=== PATIENT | male | born 1985 | race Caucasian/White ===

== ENCOUNTER → 2021-04-02 09:45 | Outpatient (CLI) | payer OTHER, SELFPAY ==
[2021-04-02 11:28] LABS: Add Manual Diff / Slide Review NO; Basophils Absolute Auto 100 /uL (0-100); Basophils Percent Auto 0.9 % (0-2); Eosinophils Absolute Auto 500 /uL (0-450); Eosinophils Percent Auto 6.1 % (2-4); Hemoglobin 14.6 g/dL (13.5-17.5); Lymphocytes Absolute Auto 1800 /uL (1100-4500); Lymphocytes Percent Auto 20.6 % (25-40); Mean Corpuscular HGB Conc 33.3 % (30-36); Mean Corpuscular Hemoglobin 27.6 PG (26-34); Mean Corpuscular Volume 83.1 fL (80-100); Monocytes Absolute Auto 600 /uL (0-900); Monocytes Percent Auto 7.3 % (3-14); Neutrophils Absolute Auto 5800 /uL (1500-7000); Neutrophils Percent Auto 65.1 % (50-75); Platelet Count 300 X10^3/uL (150-400); Red Blood Cell Count 5.29 X10^6/uL (4.5-5.9); Red Cell Distribution Width 13.2 % (11.6-14.8); White Blood Cell Count 8.9 X10^3/uL (4.5-11.0)
[2021-04-02 12:59] LABS: Alanine Aminotransferase 47 IU/L (<50); Albumin 4.8 g/dL (3.5-5.0); Albumin Globulin Ratio 1.6 (1.0-2.8); Alkaline Phosphatase 103 U/L (38-126); Aspartate Aminotransferase 47 IU/L (17-59); BUN Creatinine Ratio 17.4 (6-22); Bilirubin Total 0.5 mg/dL (0.2-1.3); Blood Urea Nitrogen 16 mg/dL (9-20); Calcium 9.7 mg/dL (8.4-10.2); Carbon Dioxide 24 mmol/L (22-32); Chloride 105 mmol/L (98-107); Cholesterol 262 mg/dL (140-199); Estimated Glomerular Filt Rate > 60.0 mL/min (>60); Glucose 98 mg/dL (70-100); HDL Cholesterol 44 mg/dL (40-60); HEMOLYSIS < 15 (0-50); Potassium 4.6 mmol/L (3.4-5.1); Sodium 139 mmol/L (137-145); Total Protein 7.8 g/dL (6.3-8.2)
[2021-04-02 13:20] LABS: Triglycerides 642 mg/dL (35-150)
[2021-04-02 14:46] LABS: LDL Cholesterol Direct 97 mg/dL (<100)
== END ==
PROVIDERS: Family Medicine; PCP Family Medicine; Referring Provider Family Medicine; Visit Provider Family Medicine
DX: Z13.9 Encounter for screening, unspecified (principal); E78.00 Pure hypercholesterolemia, unspecified
CPT/HCPCS: 36415; 80053; 80061; 83721; 85025

== ENCOUNTER → 2021-06-30 09:55 | Outpatient (CLI) | payer OTHER, SELFPAY ==
[2021-06-30 12:27] LABS: Cholesterol 249 mg/dL (140-199); HDL Cholesterol 38 mg/dL (40-60); LDL Cholesterol Calculated 145 mg/dL (<100); Triglycerides 332 mg/dL (35-150)
== END ==
PROVIDERS: PCP Family Medicine; Referring Provider Family Medicine; Visit Provider Family Medicine
DX: E78.1 Pure hyperglyceridemia (principal)
CPT/HCPCS: 36415; 80061

== ENCOUNTER 2022-05-13 19:55 | Emergency (ER) | payer OTHER, SELFPAY ==
[2022-05-13 20:15] VITALS: BP 163/80; PULSE 80; RESP 20; TEMP 36.7; O2SAT 99; BMI 29.6
[2022-05-13] MEDS: PROPARACAINE 0.5% OPHTH SOL 1 DROPS EYE-RIGHT (20:47)
[2022-05-13] MEDS: ERYTHROMYCIN OPHTH 1 GM OINT 1 APPLIC EYE-RIGHT (20:47)
--- NOTE | 2022-05-13 20:51 | ED.GENADULT ---
HPI - General Adult General Chief complaint: Eye Problems Stated complaint: Metal in eye Time Seen by Provider: 05/13/22 20:04 Source: patient Mode of arrival: Ambulatory History of Present Illness HPI narrative: Patient is a 37-year-old male here for evaluation what he states is a piece of metal in his right eye. He was working with metal while at work. He thinks that he got a piece in his eye. He can actually see it in his right eye. Has irritation. Has not tried to remove it on his own. Does not wear contact lenses. Related Data Previous Rx's Medication Instructions Recorded naproxen 500 mg tablet 500 mg PO BID #60 tabs 05/14/19 erythromycin 5 mg/gram (0.5 %) eye 0.5 inch EYE-RIGHT TID 5 days #3.5 05/13/22 ointment grams Allergies Allergy/AdvReac Type Severity Reaction Status Date / Time No Known Drug Allergies Allergy Verified 05/14/19 15:17 Review of Systems Eyes Eyes: Reports system reviewed and no additional complaints, except as documented ENT Ears, Nose, Mouth, and Throat: Reports system reviewed and no additional complaints, except as documented Integumentary/Breasts Skin/Breast: Reports system reviewed and no additional complaints, except as documented Patient History Medical History Hypertriglyceridemia Obesity (BMI 30.0-34.9) Toxic shock syndrome Family History Father Cancer Social History marital status: number of children: 2 household members: family lives independently: Yes occupational status: employed Smoking Status: Never smoker alcohol intake: current substance use type: does not use Smoking Status: Never smoker alcohol intake frequency: holidays/special occasions only Exam Initial Vital Signs Initial Vital Signs: Vital Signs Temperature 98.0 F 05/13/22 20:15 Pulse Rate 80 05/13/22 20:15 Respiratory Rate 20 05/13/22 20:15 Blood Pressure 163/80 H 05/13/22 20:15 Pulse Oximetry 99 05/13/22 20:15 Oxygen Delivery Method 05/13/22 20:15 Const General: cooperative, comfortable and well developed HENIN Head: normal to inspection and normocephalic Eyes Other: Patient with an obvious foreign body at the 7 o'clock position of the right eye. Outside the direct visual axis. Skin General: no rashes or lesions noted Neuro General: patient alert and patient awake Procedures Foreign Body EYE Location: eye (R) Topical anesthetic used: proparacaine Foreign body: metal Evidence of corneal penetration: No Technique: cotton tip swab, needle and electric charisse Procedure performed under: direct visualization with magnification and slit-lamp Post-procedure medication: ophthalmic antibiotic Patient tolerated procedure: well Complications: residual rust ring Course Orders Ordered: Discontinued Medications Erythromycin (Erythromycin Ophth 1 Gm Oint) 1 applic EYE-RIGHT NOW ONE Stop: 05/13/22 20:06 Last Admin: 05/13/22 20:47 Dose: 1 applic Documented By: BT Fluorescein Sodium (Fluorescein 1 Mg Strip) 1 mg EYE-BOTH NOW ONE Stop: 05/13/22 20:06 Last Admin: 05/13/22 20:52 Dose: Not Given Documented By: BT Proparacaine HCl (Proparacaine 0.5% Ophth Jackeline) 1 drops EYE-RIGHT NOW ONE Stop: 05/13/22 20:06 Last Admin: 05/13/22 20:47 Dose: 1 units Documented By: BT Vital Signs Vital signs: Vital Signs - 8 hr 05/13/22 20:15 Temperature 98.0 F Pulse Rate 80 Respiratory Rate 20 Blood Pressure 163/80 H Pulse Oximetry 99 Oxygen Delivery Method Room Air Medical Decision Making MDM Narrative Medical decision making narrative: Very easily identifiable metal foreign body to the right eye. The actual foreign body was removed by con tip applicator however there was a residual rust ring. This was attempted to be removed by needle but then a bur was used. I was able to remove most of it however there was a small amount of residual rust ring that I could not remove. Will place the patient on antibiotic ointment. He does have an appointment with a eye doctor that is scheduled for 1 month from now. Informed him that he should call that office on Monday to see if they could see him next week and if they could not that he should contact the senior software developer here at the hospital. He was given return precautions and follow-up instructions. He expressed understanding and agreement. Discharge Plan Departure Patient Disposition: Home Clinical Impression: Eye foreign body Instructions: DI for Foreign Body in the Eye Activity Restrictions/Additional Instructions: Some antibiotic ointment was placed here in the emergency department. I recommend that you put some more in your right eye before he got bed tonight and then in the morning when you wake up. A prescription for more this antibiotic ointment was sent to [facility] per your request. Use 3 times a day as directed. On Monday contact the eye doctor you have a scheduled appointment with like we discussed. If they can not see you you can contact the eye doctors here at the hospital. I do recommend you have a follow-up within the next week. Return to the emergency department for any new or worsening symptoms Prescriptions: New erythromycin 5 mg/gram (0.5 %) ointment 0.5 inch EYE-RIGHT TID 5 Days Qty: 3.5 1RF No Action naproxen 500 mg tablet 500 mg PO BID Qty: 60 0RF Rx Instructions: stop other nsaids, take with food Referrals: Kathy Mack MD [Physician] - Carmen Bates DO [Primary Care Provider] - Visit Report Forms: Patient Portal/API
== END 2022-05-13 21:01 | disposition home or self-care (01) ==
PROVIDERS: Emergency Provider Emergency Medicine; PCP Family Medicine
DX: T15.91XA Foreign body on external eye, part unspecified, right eye, initial encounter (principal)
CPT/HCPCS: 65205; 99282; 99283